=== PATIENT | female | born 1975 | race Caucasian/White ===

== ENCOUNTER 2019-04-26 08:30 | Inpatient (IN) | payer OTHER ==
[2019-04-26 09:58] LABS: ADD MAN DIFF? NO
[2019-04-26] MEDS: SOD CHLORIDE 0.9% 1,000 ML IV ×2 (10:02→20:48)
[2019-04-26 10:20] LABS: INR 0.89; PARTIAL THROMBOPLASTIN TIME 29.3 Sec (23.0-35.0); PROTIME 12.2 Sec (11.9-14.9)
[2019-04-26 10:37] LABS: ALANINE AMINOTRANSFERASE 39 IU/L (13-69); ALBUMIN 4.5 g/dl (3.3-4.9); ALBUMIN/GLOBULIN RATIO 1.12; ALKALINE PHOSPHATASE 77 IU/L (42-121); ANION GAP 10 (5-13); ASPARTATE AMINO TRANSFERASE 38 IU/L (15-46); BILIRUBIN,INDIRECT 0.5 mg/dl (0-1.1); BILIRUBIN,TOTAL 0.5 mg/dl (0.2-1.3); BLOOD UREA NITROGEN 10 mg/dl (7-20); CALCIUM 9.7 mg/dl (8.4-10.2); CARBON DIOXIDE 24 mmol/L (21-31); CHLORIDE 104 mmol/L (97-110); CREATININE 0.54 mg/dl (0.44-1.00); Estimated GFR > 60 mL/min (>60); GLUCOSE 101 mg/dl (70-220); POTASSIUM 4.6 mmol/L (3.5-5.1); SODIUM 138 mmol/L (135-144); TOTAL PROTEIN 8.5 g/dl (6.1-8.1)
[2019-04-26] MEDS ORDERED: PROPOFOL 20 ML (12:44)
[2019-04-26] MEDS ORDERED: LIDOCAINE 2% (SDV) 5 ML INJ (12:44)
[2019-04-26] MEDS ORDERED: ROCURONIUM 50 MG INJ (12:44)
[2019-04-26] MEDS ORDERED: CEFAZOLIN 1 GM INJ (12:44)
[2019-04-26] MEDS ORDERED: ONDANSETRON 4 MG INJ (12:44)
[2019-04-26] MEDS ORDERED: MIDAZOLAM 1 MG/ML 2 ML INJ (12:44)
[2019-04-26] MEDS: CEFAZOLIN 2 GM/50 ML (PMX) 50 ML IVPB ×3 (13:15→23:00)
[2019-04-26] MEDS: BUPIVACAINE 0.25% (MPF) 30 ML INJ (13:37)
[2019-04-26] MEDS ORDERED: HYDROmorphONE 2 MG/ML SYG (13:42)
[2019-04-26 14:14] LABS: BASOPHILS % 0.3 % (0.0-2.0); EOSINOPHILS # 0.1 10^3/ul (0.0-0.5); EOSINOPHILS % 0.8 % (0.0-7.0); HEMATOCRIT 42.4 % (37.0-47.0); HEMOGLOBIN 13.5 g/dl (12.0-16.0); LYMPHOCYTES % 26.8 % (15.0-51.0); MEAN CORPUSCULAR HEMOGLOBIN 29.2 pg (29.0-33.0); MEAN CORPUSCULAR HGB CONC 31.8 g/dl (32.0-37.0); MEAN CORPUSCULAR VOLUME 91.6 fl (82.0-101.0); MEAN PLATELET VOLUME 9.4 fl (7.4-10.4); MONOCYTE # 0.6 10^3/ul (0.3-0.9); MONOCYTES % 7.6 % (0.0-11.0); NEUTROPHIL # 4.8 10^3/ul (1.6-7.5); NEUTROPHILS % 64.2 % (39.0-77.0); PLATELET COUNT 334 10^3/UL (140-415); RED BLOOD COUNT 4.63 10^6/ul (4.20-5.40); RED CELL DISTRIBUTION WIDTH 13.2 % (11.5-14.5)
[2019-04-26 14:14] LABS: WHITE BLOOD COUNT 7.5 10^3/ul (4.8-10.8)
[2019-04-26] MEDS ORDERED: SUGAMMADEX SODIUM 200 MG/2 ML VIAL IV (14:24)
[2019-04-26] MEDS: LACTATED RINGER'S 1,000 ML IV (14:52)
[2019-04-26] MEDS: morphine 2 MG INJ IV ×2 (14:59→16:57)
[2019-04-26] MEDS ORDERED: HYDROmorphONE 1 MG/5 ML IV SYRINGE IV ×3 (15:00)
[2019-04-26 15:12] LABS: ADD MAN DIFF? NO
[2019-04-26 15:14] LABS: WHITE BLOOD COUNT 8.9 10^3/ul (4.8-10.8)
[2019-04-26 15:14] LABS: BASOPHILS % 0.2 % (0.0-2.0); EOSINOPHILS # 0.1 10^3/ul (0.0-0.5); EOSINOPHILS % 0.6 % (0.0-7.0); HEMATOCRIT 36.7 % (37.0-47.0); HEMOGLOBIN 11.8 g/dl (12.0-16.0); LYMPHOCYTES # 2.2 10^3/ul (0.8-2.9); MEAN CORPUSCULAR HEMOGLOBIN 29.4 pg (29.0-33.0); MEAN CORPUSCULAR HGB CONC 32.2 g/dl (32.0-37.0); MEAN CORPUSCULAR VOLUME 91.3 fl (82.0-101.0); MEAN PLATELET VOLUME 8.5 fl (7.4-10.4); MONOCYTE # 0.7 10^3/ul (0.3-0.9); MONOCYTES % 7.3 % (0.0-11.0); NEUTROPHIL # 5.9 10^3/ul (1.6-7.5); NEUTROPHILS % 66.4 % (39.0-77.0); PLATELET COUNT 285 10^3/UL (140-415); RED BLOOD COUNT 4.02 10^6/ul (4.20-5.40)
[2019-04-26] MEDS: METOPROLOL 5 MG INJ IV (15:16)
[2019-04-26 15:33] LABS: ALANINE AMINOTRANSFERASE 36 IU/L (13-69); ALBUMIN 3.5 g/dl (3.3-4.9); ALBUMIN/GLOBULIN RATIO 1.06; ALKALINE PHOSPHATASE 54 IU/L (42-121); ANION GAP 8 (5-13); ASPARTATE AMINO TRANSFERASE 25 IU/L (15-46); BILIRUBIN,INDIRECT 0.3 mg/dl (0-1.1); BILIRUBIN,TOTAL 0.3 mg/dl (0.2-1.3); BLOOD UREA NITROGEN 9 mg/dl (7-20); CARBON DIOXIDE 23 mmol/L (21-31); CHLORIDE 107 mmol/L (97-110); CREATININE 0.58 mg/dl (0.44-1.00); Estimated GFR > 60 mL/min (>60); GLUCOSE 106 mg/dl (70-220); POTASSIUM 4.2 mmol/L (3.5-5.1); SODIUM 138 mmol/L (135-144); TOTAL PROTEIN 6.8 g/dl (6.1-8.1)
[2019-04-26 15:38] LABS: CALCIUM 8.1 mg/dl (8.4-10.2)
[2019-04-26] MEDS: CALCIUM GLUCONATE 10% 2 GM in DEXTROSE 5% 100 ML IVPB (16:21)
[2019-04-26] MEDS ORDERED: ACETAMINOPHEN 325 MG TAB PO (18:30)
[2019-04-26] MEDS: ONDANSETRON 4 MG INJ IV (20:48)
[2019-04-27] MEDS: HYDROCODONE/APAP (5/325) TAB PO ×3 (00:12→16:45)
[2019-04-27] MEDS: LACTATED RINGER'S 1,000 ML IV ×3 (00:24→20:24)
[2019-04-27] MEDS: CEFAZOLIN 2 GM/50 ML (PMX) 50 ML IVPB (05:46)
[2019-04-27 06:02] LABS: ADD MAN DIFF? NO
[2019-04-27 06:13] LABS: WHITE BLOOD COUNT 11.7 10^3/ul (4.8-10.8)
[2019-04-27 06:13] LABS: BASOPHILS % 0.2 % (0.0-2.0); EOSINOPHILS # 0.1 10^3/ul (0.0-0.5); EOSINOPHILS % 0.5 % (0.0-7.0); HEMATOCRIT 35.4 % (37.0-47.0); HEMOGLOBIN 11.4 g/dl (12.0-16.0); LYMPHOCYTES # 2.4 10^3/ul (0.8-2.9); LYMPHOCYTES % 20.7 % (15.0-51.0); MEAN CORPUSCULAR HEMOGLOBIN 29.3 pg (29.0-33.0); MEAN CORPUSCULAR HGB CONC 32.2 g/dl (32.0-37.0); MEAN PLATELET VOLUME 9.4 fl (7.4-10.4); MONOCYTES % 8.2 % (0.0-11.0); NEUTROPHIL # 8.2 10^3/ul (1.6-7.5); PLATELET COUNT 305 10^3/UL (140-415); RED BLOOD COUNT 3.89 10^6/ul (4.20-5.40); RED CELL DISTRIBUTION WIDTH 13.1 % (11.5-14.5)
[2019-04-27 06:34] LABS: ALANINE AMINOTRANSFERASE 33 IU/L (13-69); ALBUMIN 3.4 g/dl (3.3-4.9); ALBUMIN/GLOBULIN RATIO 1.03; ALKALINE PHOSPHATASE 43 IU/L (42-121); ANION GAP 6 (5-13); ASPARTATE AMINO TRANSFERASE 35 IU/L (15-46); BILIRUBIN,INDIRECT 0.6 mg/dl (0-1.1); BILIRUBIN,TOTAL 0.6 mg/dl (0.2-1.3); BLOOD UREA NITROGEN 8 mg/dl (7-20); CALCIUM 8.7 mg/dl (8.4-10.2); CARBON DIOXIDE 28 mmol/L (21-31); CHLORIDE 101 mmol/L (97-110); CREATININE 0.52 mg/dl (0.44-1.00); Estimated GFR > 60 mL/min (>60); GLUCOSE 87 mg/dl (70-220); POTASSIUM 4.1 mmol/L (3.5-5.1); SODIUM 135 mmol/L (135-144); TOTAL PROTEIN 6.7 g/dl (6.1-8.1)
[2019-04-27] MEDS: morphine 2 MG INJ IV (06:41)
[2019-04-27] MEDS: LISINOPRIL 20 MG TAB PO (08:43)
[2019-04-28] MEDS: HYDROCODONE/APAP (5/325) TAB PO ×3 (03:12→21:23)
[2019-04-28] MEDS: LACTATED RINGER'S 1,000 ML IV ×2 (06:24→16:24)
[2019-04-28] MEDS: LISINOPRIL 20 MG TAB PO (09:00)
[2019-04-28 20:21] LABS: CALCIUM 9.1 mg/dl (8.4-10.2)
== END 2019-04-28 22:40 | disposition home or self-care (01) | DRG 941 ==
LOC: SDS 08:30 → REC 14:25 → MS1 16:32
PROC: 0GTG0ZZ Resection of Left Thyroid Gland Lobe, Open Approach (ICD-10-PCS; principal; 2019-04-26 12:00)
PROC: 0HX4XZZ Transfer Neck Skin, External Approach (ICD-10-PCS; 2019-04-26 12:00)
PROC: 0GTH0ZZ Resection of Right Thyroid Gland Lobe, Open Approach (ICD-10-PCS; 2019-04-26 12:00)
DX: G89.18 Other acute postprocedural pain (principal); R13.10 Dysphagia, unspecified; E04.2 Nontoxic multinodular goiter; I10 Essential (primary) hypertension
CPT/HCPCS: 71045; 80053; 82310; 84703; 85025; 85610; 85730; 88307; 93005; 99217